=== PATIENT | male | born 1995 | race Caucasian/White ===

== ENCOUNTER → 2016-11-07 | Outpatient (CLI) | payer OTHER ==
--- NOTE | 2016-11-07 13:10 | XR ---
EXAMINATION TYPE: XR foot complete RT DATE OF EXAM ORDERED: 11/07/2016 12:39 PM HISTORY: Crush injury. COMPARISON: Previous study dated 10/30/2016. FINDINGS: No fracture, dislocation or other acute osseous lesion is seen. Note is made of small Achilles and plantar calcaneal spurs. IMPRESSION: 1. NO ACUTE OSSEOUS LESION. 2. CALCANEAL SPURS.
== END | disposition home or self-care (01) ==
LOC: RADXRMAIN 12:23
PROVIDERS: ATTEND Emergency Medicine
DX: S97.81XA Crushing injury of right foot, initial encounter (principal); M77.31 Calcaneal spur, right foot

== ENCOUNTER 2018-07-22 17:33 | Emergency (ER) | payer BC ==
[2018-07-22 17:38] VITALS: RESP 16
--- NOTE | 2018-07-22 17:58 | ED ---
Extremity Problem HPI - General Chief complaint: Extremity Problem,Nontraumatic Stated complaint: KNEE Time Seen by Provider: 07/22/18 17:41 Source: patient, RN notes reviewed Mode of arrival: ambulatory Limitations: no limitations - History of Present Illness Initial comments: This is a 23-year-old male who presents to the emergency department with chief complaint of right knee pain. Patient states that in February he was getting out of his car and experienced right knee pain for one week. He states that it then went away. Patient states that yesterday while getting up from a chair, he developed the same right knee pain. He states that most of the pain is to the back of the knee and he sometimes has a sharp shooting pain down his calf. States that he does experience pain with bearing weight and ambulating. He denies any specific injuries or trauma. Denies falls. Denies fever, chills, chest pain, shortness of breath, abdominal pain, nausea or vomiting, numbness or tingling, headache or vision changes. - Related Data Previous Rx's Medication Instructions Recorded Ibuprofen [Motrin] 600 mg PO Q6HR PRN #20 tab 10/30/16 Allergies Allergy/AdvReac Type Severity Reaction Status Date / Time Penicillins Allergy Unknown Verified 07/22/18 17:38 Childhood latex AdvReac Rash/Hives Verified 07/22/18 17:38 Review of Systems ROS Statement: Those systems with pertinent positive or pertinent negative responses have been documented in the HPI. ROS Other: All systems not noted in ROS Statement are negative. 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 History of Any Multi-Drug Resistant Organisms: None Reported, MRSA Date of last positivie culture/infection: 2012 MDRO Source:: elbow Past Surgical History: No Surgical Hx Reported Past Anesthesia/Blood Transfusion Reactions: Unable to Obtain Additional Past Anesthesia/Blood Transfusion Reaction / Comment(s): no surgeries / anesthesia Past Psychological History: ADD/ADHD Smoking Status: Current every day smoker Past Alcohol Use History: Occasional Past Drug Use History: None Reported - Past Family History Mother Family Medical History: No Reported History General Exam - General Exam Comments Initial Comments: General: Awake and alert, well-developed; in no apparent distress. HEENT: Head atraumatic, normocephalic. Pupils are equal, round and reactive to light. Extraocular movements intact. Oropharynx moist without erythema or exudate. Neck: Supple. Normal ROM. Cardiovascular: Regular rate and rhythm. No murmurs, rubs or gallops. Chest symmetrical. Respiratory: Lungs clear to auscultation bilaterally. No wheezes, rales or rhonchi. Normal respiratory effort with no use of accessory muscles. Musculoskeletal: Normal range of motion of the right knee. Mild generalized swelling. There is no tenderness on palpation, no erythema or ecchymosis. Patient experiences posterior knee pain with full flexion and varus stress. Sensation is intact. Pedal pulses are 2+ equal and palpable bilaterally. Skin: [place], warm and dry without rashes or lesions. Neurological: Alert and oriented x3. CN II-XII grossly intact. Speech is fluent and answers are appropriate. No focal neuro deficits. Psychiatric: Normal mood and affect. No overt signs of depression or anxiety noted. Limitations: no limitations Course Vital Signs 07/22/18 17:36 Temperature 98.3 F Pulse Rate 98 Respiratory 16 Rate Blood Pressure 131/69 O2 Sat by Pulse 99 Oximetry Medical Decision Making - Medical Decision Making This is a 23-year-old male who presents to the emergency department with chief complaint of right knee pain. Patient reports pain to the posterior knee that radiates down his leg. There is pain elicited with full flexion and varus stress of the knee. X-ray was obtained which revealed no acute abnormalities. Recommend following up with orthopedics for further evaluation and treatment. He is in agreement with plan and voices understanding. He will be discharged home at this time. Recommended ice and Advil [id number] Tylenol as needed. All questions answered. - Radiology Data Radiology results: report reviewed X-ray right knee impression: Negative right knee exam. Disposition Clinical Impression: Right knee pain Disposition: HOME SELF-CARE Condition: Good Instructions: Knee Pain (ED) Additional Instructions: Please follow-up with orthopedics for further evaluation. Please follow up with primary care provider within 1-2 days. Return to emergency department if symptoms should worsen or any concerns arise. Is patient prescribed a controlled substance at d/c from ED?: No Referrals: Sierra Zaragoza MD [Primary Care Provider] - 1-2 days Terry Morales DO [Doctor of Osteopathic Medicine] - 1-2 days Time of Disposition: 18:53
--- NOTE | 2018-07-22 18:47 | XR ---
EXAMINATION TYPE: XR knee complete RT DATE OF EXAM: 07/22/2018 COMPARISON: NONE HISTORY: Knee pain TECHNIQUE: 3 views FINDINGS: I see no fracture nor dislocation. Joint spaces are normal. There is no definite knee joint effusion. IMPRESSION: Negative right knee exam
[2018-07-22 18:59] VITALS: BP 125/78; PULSE 91; TEMP 98
== END 2018-07-22 18:57 | disposition home or self-care (01) ==
LOC: EC 17:33
DX: M25.561 Pain in right knee (principal); F17.200 Nicotine dependence, unspecified, uncomplicated; Z86.14 Personal history of Methicillin resistant Staphylococcus aureus infection; Z88.0 Allergy status to penicillin; Z91.040 Latex allergy status
CPT/HCPCS: 99283

== ENCOUNTER 2022-07-15 16:01 | Emergency (ER) | payer BC, OTHER ==
[2022-07-15 17:07] LABS: Basophils % (A) 0 %; Eosinophils # (A) 0.3 k/uL (0-0.7); Eosinophils % (A) 3 %; HCT 50.9 % (39.0-53.0); HGB 16.5 gm/dL (13.0-17.5); Lymphocytes # (A) 1.9 k/uL (1.0-4.8); Lymphocytes % (A) 14 %; MCH 29.4 pg (25.0-35.0); MCHC 32.4 g/dL (31.0-37.0); MCV 90.7 fL (80.0-100.0); Mean Platelet Volume 8.1; Monocytes # (A) 0.6 k/uL (0-1.0); Monocytes % (A) 5 %; Neutrophils # (A) 10.6 k/uL (1.3-7.7); Neutrophils % (A) 78 %; Platelet Count 238 k/uL (150-450); RBC 5.61 m/uL (4.30-5.90); WBC 13.6 k/uL (3.8-10.6)
[2022-07-15 17:28] LABS: ALT 37 U/L (4-49); AST 33 U/L (17-59); African American GFR (CKD) >90 (>60 ml/min/1.73 sqM); Albumin 4.6 g/dL (3.5-5.0); Alkaline Phosphatase 87 U/L (38-126); Anion Gap 11 mmol/L; Blood Urea Nitrogen 15 mg/dL (9-20); Calcium 9.4 mg/dL (8.4-10.2); Carbon Dioxide 25 mmol/L (22-30); Chloride 101 mmol/L (98-107); Glucose 119 mg/dL (74-99); Non-African American GFR(CKD) >90 (>60 ml/min/1.73 sqM); Potassium 4.2 mmol/L (3.5-5.1); Sodium 137 mmol/L (137-145); Total Bilirubin 0.4 mg/dL (0.2-1.3); Total Protein 7.4 g/dL (6.3-8.2)
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
[2022-07-15 19:49] VITALS: BP 158/75; PULSE 66; RESP 18; TEMP 99.1
--- NOTE | 2022-07-15 19:59 | XR ---
EXAMINATION TYPE: XR chest 2V DATE OF EXAM: 07/15/2022 COMPARISON: NONE HISTORY: Syncope TECHNIQUE: 2 view FINDINGS: Heart and mediastinum are normal. Lungs are clear. Diaphragm is normal. Bony thorax appears normal. IMPRESSION: Normal chest.
[2022-07-15 20:00] LABS: INR 0.9 (<1.2)
== END 2022-07-15 20:47 | disposition home or self-care (01) ==
LOC: EC 16:01
DX: R55 Syncope and collapse (principal); Z88.0 Allergy status to penicillin; Z91.040 Latex allergy status; F17.200 Nicotine dependence, unspecified, uncomplicated
CPT/HCPCS: 36415; 71046; 80053; 84484; 85025; 85379; 85610; 85730; 93005; 99284